=== PATIENT | female | born 1955 | race Hispanic/Latino ===

== ENCOUNTER → 2020-09-26 12:13 | Outpatient (CLI) | payer MEDICARE, SELFPAY ==
[2020-09-26 13:02] LABS: COVID19 -Nasal RAPID Negative (Negative)
== END ==
PROVIDERS: Visit Provider Physician Assistant
DX: H92.09 Otalgia, unspecified ear (principal); J02.9 Acute pharyngitis, unspecified; R05 Cough; R50.9 Fever, unspecified; Z20.822 Contact with and (suspected) exposure to COVID-19
CPT/HCPCS: 87635